=== PATIENT | female | born 1980 | race Caucasian/White ===

== ENCOUNTER 2020-10-18 08:19 | Day surgery (SDC) | payer OTHER ==
[2020-10-18] MEDS ORDERED: Dextrose 5%-Lactated Ringers 1,000 ML IV SCH (08:45)
[2020-10-18] MEDS ORDERED: Midazolam 1 MG/ML 2 ML SDV ONE (11:24)
[2020-10-18] MEDS ORDERED: fentaNYL 100 MCG/2 ML SDV ONE (11:24)
[2020-10-18] MEDS ORDERED: Propofol 200 MG/20 ML SDV ONE ×2 (11:25→12:21)
--- NOTE | 2020-10-28 15:52 | OR ---
DATE OF PROCEDURE: 10/18/2020 SURGEON: Kalia Sotelo MD PREOPERATIVE DIAGNOSIS: Recent episodes of rectal bleeding. POSTOPERATIVE DIAGNOSIS: Recent episodes of rectal bleeding related to excoriated hemorrhoids. OPERATIVE PROCEDURE: Flexible colonoscopy. ANESTHESIA: IV sedation. INDICATIONS FOR PROCEDURE: A 40-year-old female presenting with some recent episodes of rectal bleeding. She has not had any significant further bleeding over the last 2 weeks or so. Plan is to proceed with a flexible colonoscopy with biopsies and/or polypectomy as indicated. Potential risks including bleeding and perforation were discussed, and the patient wishes to proceed. DETAILS OF PROCEDURE: The patient was taken to the operating room and placed in a left lateral decubitus position. IV sedation was administered after which the initial digital rectal exam was performed which was unremarkable. Colonoscope was then passed into the rectum. Retroflexion revealed 3 columns of quite excoriated-appearing hemorrhoids. These were not actively bleeding or covered with blood, but they would be candidates for intermittent bleeding in the recent past. The scope was then eventually passed to the cecum. There was no additional pathology noted. Specifically, no diverticula. No areas of colitis. No polyps or other signs of neoplasia. No blood or bleeding was seen. The prep was overall quite good. Only small amount of liquid stool was present. Scope was then withdrawn and the above findings reconfirmed, and the procedure was then concluded. Recommendation would be to repeat the colonoscopy in 10 years if she has no family or personal history of colonic neoplasia and that would put her at age 50. Otherwise, if she develops recurrent bleeding in the meantime, surgical consultation regarding possible hemorrhoid banding would be warranted. Kalia Sotelo MD /[id number]
== END 2020-10-18 13:42 | disposition home or self-care (01) ==
LOC: JP.SDS 08:19
PROVIDERS: ATTEND Surgery
DX: K64.9 Unspecified hemorrhoids (principal)
CPT/HCPCS: 45378; 81025; J2250; J2704; J3010; J7121